=== PATIENT | male | born 1995 | race Two or more races ===

== ENCOUNTER 2016-06-06 20:34 | Emergency (ER) | payer SELFPAY ==
[2016-06-06] MEDS ORDERED: ONDANSETRON 4 MG ODT TAB ONE (22:30)
--- NOTE | 2016-06-07 07:55 | RAD ---
Exam: Single view abdomen COMPARISON: 12/07/2006 INDICATION: Intermittent episodes of nausea and vomiting over the last 2 months. FINDINGS: A single supine AP view of the abdomen was obtained and demonstrates a normal bowel gas pattern without evidence of obstruction. Minimal stool is present. No obvious organomegaly or mass effect. No abnormal abdominal calcifications are seen. Bones are unremarkable. IMPRESSION: Negative single view abdomen.
== END 2016-06-06 23:16 | disposition home or self-care (01) ==
LOC: ED 20:34
DX: R11.2 Nausea with vomiting, unspecified (principal); F12.90 Cannabis use, unspecified, uncomplicated
CPT/HCPCS: 74000; 99283 ×2; A9270